=== PATIENT | female | born 1965 | race Caucasian/White ===

== ENCOUNTER 2019-01-24 14:21 | Emergency (ER) | payer OTHER ==
[~2019-01-24] VITALS: Ht 165.1 cm; Wt 79.4 kg
[2019-01-24 15:31] VITALS: BP 163/104
== END 2019-01-24 15:32 | disposition home or self-care (01) ==
LOC: M.ERS 14:21
DX: J02.0 Streptococcal pharyngitis (principal); Z88.8 Allergy status to other drugs, medicaments and biological substances